=== PATIENT | male | born 1975 | race African-American/Black ===

== ENCOUNTER 2016-03-26 20:54 | Emergency (ER) | payer OTHER ==
[2016-03-26 21:04] VITALS: BP 115/55; PULSE 82; RESP 20; TEMP 98.2
[2016-03-26] MEDS ORDERED: cefTRIAXone 1,000 MG VIAL (IM USE) IM STA (23:19)
[2016-03-26] MEDS ORDERED: AZITHROMYCIN 500 MG TAB PO STA (23:19)
--- NOTE | 2016-03-26 23:40 | ED ---
General Adult HPI - General Chief complaint: Recheck/Abnormal Lab/Rx Stated complaint: STD Screen Time Seen by Provider: 03/26/16 23:11 Source: patient, RN notes reviewed Mode of arrival: ambulatory Limitations: no limitations - History of Present Illness Initial comments: Patient is a 40-year-old male presenting to the with chief complaint of possible STD exposure of the ex-girlfriend from approximately 2 months ago. Patient reports received a phone call today from the ex-girlfriend stating that he could possibly have chlamydia. Patient denies any urethral discharge or dysuria. Patient reports that he is here with his girlfriend and she wants to be treated for possible chlamydia as well. Patient denies any abdominal pain, fevers or chills. He denies any changes in bowel movements. - Related Data Home Medications Medication Instructions Recorded Confirmed No Known Home Medications [No 03/26/16 03/26/16 Known Home Medications] Allergies Allergy/AdvReac Type Severity Reaction Status Date / Time No Known Allergies Allergy Verified 03/26/16 21:04 Review of Systems ROS Statement: Those systems with pertinent positive or pertinent negative responses have been documented in the HPI. ROS Other: All systems not noted in ROS Statement are negative. Past Medical History Past Medical History: No Reported History History of Any Multi-Drug Resistant Organisms: None Reported Past Surgical History: No Surgical Hx Reported Past Psychological History: No Psychological Hx Reported Smoking Status: Current every day smoker Past Alcohol Use History: Occasional Past Drug Use History: Marijuana General Exam - General Exam Comments Initial Comments: Patient is a well-appearing 40-year-old male. Doesn't appear to be in any acute distress. Limitations: no limitations General appearance: alert, in no apparent distress Head exam: Present: atraumatic, normocephalic, normal inspection Eye exam: Present: normal appearance, PERRL, EOMI. Absent: scleral icterus, conjunctival injection, periorbital swelling ENT exam: Present: normal exam, mucous membranes moist Neck exam: Present: normal inspection. Absent: tenderness, meningismus, lymphadenopathy Respiratory exam: Present: normal lung sounds bilaterally. Absent: respiratory distress, wheezes, rales, rhonchi, stridor Cardiovascular Exam: Present: regular rate, normal rhythm, normal heart sounds. Absent: systolic murmur, diastolic murmur, rubs, gallop, clicks GI/Abdominal exam: Present: soft, normal bowel sounds. Absent: distended, tenderness, guarding, rebound, rigid Extremities exam: Present: normal inspection, full ROM, normal capillary refill. Absent: tenderness, pedal edema, joint swelling, calf tenderness Back exam: Present: normal inspection Neurological exam: Present: alert, oriented X3, CN II-XII intact Psychiatric exam: Present: normal affect, normal mood Skin exam: Present: warm, dry, intact, normal color. Absent: rash Course Vital Signs 03/26/16 21:01 Temperature 98.2 F Pulse Rate 82 Respiratory 20 Rate Blood Pressure 115/55 O2 Sat by Pulse 98 Oximetry Medical Decision Making - Medical Decision Making Patient is a 40-year-old male possible exposure. Urinalysis was obtained. Also Neisseria gonorrhea and chlamydia are any test will be run off the urine. Patient will be treated empirically with Rocephin and azithromycin. Upon further review of patient's girlfriend's laboratory results after she was discharged is positive she does have Trichomonas. Patient will be given a handwritten prescription for metronidazole 500 mg twice a day for the next 7 days to treat for Trichomonas as well as his girlfriend. Return parameters were discussed. I advised patient to avoid sexual activity 2 weeks until completely treated. Patient understands treatment plan will comply. - Lab Data Lab Results 03/26/16 Range/Units 23:50 Urine Color Yellow Urine Appearance Clear (Clear) Urine pH 5.5 (5.0-8.0) Ur Specific Cornelia 1.029 (1.001-1.035) Urine Protein 1+ H (Negative) Urine Glucose (UA) Negative (Negative) Urine Ketones Negative (Negative) Urine Blood Negative (Negative) Urine Nitrate Negative (Negative) Urine Bilirubin Negative (Negative) Urine Urobilinogen 3.0 (<2.0) mg/dL Ur Leukocyte Esterase Trace H (Negative) Urine RBC 1 (0-5) /hpf Urine WBC 3 (0-5) /hpf Ur Squamous Epith Cells 2 (0-4) /hpf Urine Bacteria Rare H (None) /hpf Hyaline Casts 6 H (0-2) /lpf Urine Mucus Many H (None) /hpf Disposition Clinical Impression: STD exposure Disposition: HOME SELF-CARE Condition: Good Instructions: Sexually Transmitted Diseases (ED), Chlamydia (ED) Additional Instructions: Patient instructed to follow-up with primary care provider. Patient instructed to return to the [facility] if any alarming signs or symptoms occur. Referrals: Lulú Wadswroth MD [REFERRING] - 1-2 days Time of Disposition: 23:39
[2016-03-27 00:19] LABS: Appearance,Urine Clear (Clear); Bacteria,Urine Rare /hpf; Bilirubin,Urine Negative (Negative); Glucose,Urine (UA) Negative (Negative); Ketones,Urine Negative (Negative); Leukocyte Esterase,Urine Trace (Negative); Mucus,Urine Many /hpf; Nitrite,Urine Negative (Negative); PH, Urine 5.5 (5.0-8.0); Particle Count 20543; Protein,Urine 1+ (Negative); RBC,Urine 1 /hpf (0-5); Specific Gravity,Urine 1.029 (1.001-1.035); Squamous Epithelial Cell,Urine 2 /hpf (0-4); UA Billing (MACRO vs. MICRO) MICRO; WBC,Urine 3 /hpf (0-5)
== END 2016-03-27 00:38 | disposition home or self-care (01) ==
LOC: EC 20:54
DX: Z20.2 Contact with and (suspected) exposure to infections with a predominantly sexual mode of transmission (principal); F17.200 Nicotine dependence, unspecified, uncomplicated
CPT/HCPCS: 99283; 96372; 81001; 87491; 87591; J0696

== ENCOUNTER 2016-04-01 07:56 | Emergency (ER) | payer OTHER ==
[2016-04-01 08:17] VITALS: BP 105/59; PULSE 76; RESP 20; TEMP 98
[2016-04-01] MEDS ORDERED: metroNIDAZOLE 500 MG TAB PO STA (08:32)
--- NOTE | 2016-04-01 08:47 | ED ---
Male Urogenital HPI - General Chief complaint: Urogenital Stated complaint: POSS STD Time Seen by Provider: 04/01/16 08:30 Source: patient, RN notes reviewed Mode of arrival: ambulatory Limitations: no limitations - History of Present Illness Initial comments: 40-year-old male presents emergency Department with chief complaint of possible trichomonas. Patient states that he was here for days ago test for gonorrhea and chlamydia. Patient states that his significant other came back positive for Trichomonas so he was not tested. Patient has no symptoms denies any dysuria or any penile drainage. Patient states that he has no other complaints at this time. He states that he just wants to be tested. - Related Data Home Medications Medication Instructions Recorded Confirmed No Known Home Medications [No 03/26/16 04/01/16 Known Home Medications] Allergies Allergy/AdvReac Type Severity Reaction Status Date / Time No Known Allergies Allergy Verified 04/01/16 08:23 Review of Systems ROS Statement: Those systems with pertinent positive or pertinent negative responses have been documented in the HPI. ROS Other: All systems not noted in ROS Statement are negative. Past Medical History Past Medical History: No Reported History History of Any Multi-Drug Resistant Organisms: None Reported Past Surgical History: No Surgical Hx Reported Past Psychological History: No Psychological Hx Reported Smoking Status: Current every day smoker Past Alcohol Use History: Occasional Past Drug Use History: Marijuana General Exam Limitations: no limitations General appearance: alert, in no apparent distress Head exam: Present: atraumatic, normocephalic, normal inspection Respiratory exam: Present: normal lung sounds bilaterally. Absent: respiratory distress, wheezes, rales, rhonchi, stridor Cardiovascular Exam: Present: regular rate, normal rhythm, normal heart sounds. Absent: systolic murmur, diastolic murmur, rubs, gallop, clicks GI/Abdominal exam: Present: soft, normal bowel sounds. Absent: distended, tenderness, guarding, rebound, rigid Course Vital Signs 04/01/16 08:14 Temperature 98.0 F Pulse Rate 76 Respiratory 20 Rate Blood Pressure 105/59 O2 Sat by Pulse 99 Oximetry Medical Decision Making - Medical Decision Making 40-year-old male presented for Trichomonas testing. Patient's urine will be sent for Trichomonas testing. Patient will be given Flagyl treatment at this time. Disposition Clinical Impression: STD exposure Disposition: HOME SELF-CARE Condition: Stable Instructions: Trichomoniasis (ED) Additional Instructions: Please return to the Emergency Department if symptoms worsen or any other concerns. Time of Disposition: 08:47
== END 2016-04-01 09:00 | disposition home or self-care (01) ==
LOC: EC 07:56
DX: Z20.2 Contact with and (suspected) exposure to infections with a predominantly sexual mode of transmission (principal); F17.200 Nicotine dependence, unspecified, uncomplicated
CPT/HCPCS: 99283